=== PATIENT | female | born 1980 | race Caucasian/White ===

== ENCOUNTER 2018-03-12 11:34 | Emergency (ER) | payer MEDICAID ==
[~2018-03-12] VITALS: Ht 157.5 cm; Wt 49.7 kg
[~2018-03-12 11:34] MED LIST: CYCL-394 PO; MARIJUANA; METH500T PO
[2018-03-12 12:23] LABS: BASOPHILS % (AUTO) 0.4 % (0-1); EOSINOPHILS # (AUTO) 0.5 X10'3 (0-0.9); EOSINOPHILS % (AUTO) 4.7 % (0-6); HEMATOCRIT 38.2 % (35.0-45.0); HEMOGLOBIN 12.9 g/dl (12.0-16.0); LYMPHOCYTES # (AUTO) 1.7 X10'3 (1.1-4.8); MEAN CORPUSCULAR HEMOGLOBIN 29.5 PG (27.0-31.0); MEAN CORPUSCULAR HGB CONC 33.8 g/dL (33.0-36.5); MEAN CORPUSCULAR VOLUME 87.2 FL (78-98); MEAN PLATELET VOLUME 7.2 FL (7.4-10.4); MONOCYTES # (AUTO) 0.8 X10'3 (0-0.9); MONOCYTES % (AUTO) 7.2 % (2-12); NEUTROPHILS # (AUTO) 7.6 X10'3 (1.8-7.7); NEUTROPHILS % (AUTO) 71.7 % (42-75); PLATELET COUNT 315 X10'3 (140-440); RED BLOOD COUNT 4.38 X10'6 (4.20-5.60); RED CELL DISTRIBUTION WIDTH 15.5 % (11.5-14.5); WHITE BLOOD COUNT 10.6 X10'3 (4.5-11.0)
[2018-03-12 12:29] LABS: URINE HCG NEGATIVE (NEG)
[2018-03-12 12:33] LABS: CLARITY,URINE CLOUDY (Clear); COLOR,URINE YELLOW (Yellow); GLUCOSE, URINE NEGATIVE (Neg); KETONES,URINE NEGATIVE (Neg); LEUKOCYTE ESTERASE ,URINE NEGATIVE (Neg); NITRITES, URINE NEGATIVE (Neg); OCCULT BLOOD,URINE TRACE-INTACT (Neg); PROTEIN,URINE NEGATIVE (Neg); UA COLLECTION TYPE CLN CATCH MIDSTREAM; UROBILINOGEN,URINE 0.2 E.U/dL (0.2-1.0)
[2018-03-12 12:37] LABS: PROTHROMBIN TIME 10.5 SECONDS (9.0-12.0)
[2018-03-12 12:38] LABS: ALANINE AMINOTRANSFERASE 19 U/L (12-78); ALBUMIN 3.7 G/DL (3.4-5.0); ALKALINE PHOSPHATASE 81 IU/L (46-116); AMYLASE 44 U/L (25-115); ANION GAP 7 (8-16); ASPARTATE AMINO TRANSFERASE 16 U/L (10-37); BILIRUBIN,TOTAL 0.1 MG/DL (0.1-1.0); BLOOD UREA NITROGEN 12 MG/DL (7-18); BUN/CREATININE RATIO 15.2 (6.6-38.0); CHLORIDE 103 MMOL/L (99-107); CREATININE 0.79 MG/DL (0.40-0.90); GLUCOSE 101 MG/DL (70-104); LIPASE 110 U/L (73-393); POTASSIUM 3.8 MMOL/L (3.5-5.1); SODIUM 140 MMOL/L (135-145); TOTAL PROTEIN 7.3 G/DL (6.4-8.2); eGFR 83 ML/MIN
[2018-03-12 12:42] LABS: BACTERIA,URINE 2+ /HPF (Neg); SQUAMOUS EPITHELIAL CELL,UR MANY /LPF (FEW)
[2018-03-12 12:48] LABS: RBC,URINE 0-2 /HPF (0-2); WBC,URINE 0-4 /HPF (0-4)
[2018-03-12] MEDS ORDERED: acetaminophen 325mg tablet PO ONE (13:15)
[2018-03-12] MEDS ORDERED: ONDA4TAB6 PO (15:29)
[2018-03-12 15:44] VITALS: BP 136/79
== END 2018-03-12 15:46 | disposition home or self-care (01) ==
LOC: ER 11:34
DX: R10.31 Right lower quadrant pain (principal); R91.1 Solitary pulmonary nodule; G89.29 Other chronic pain; F17.200 Nicotine dependence, unspecified, uncomplicated; F12.90 Cannabis use, unspecified, uncomplicated; F19.90 Other psychoactive substance use, unspecified, uncomplicated; Z86.69 Personal history of other diseases of the nervous system and sense organs; Z98.890 Other specified postprocedural states; Z88.5 Allergy status to narcotic agent; Z88.8 Allergy status to other drugs, medicaments and biological substances; Z79.899 Other long term (current) drug therapy
CPT/HCPCS: 36415; 74176; 80053; 81001; 81025; 82150; 83690; 85025; 85610; 99284

== ENCOUNTER 2018-10-31 13:12 | Emergency (ER) | payer MEDICAID ==
[~2018-10-31] VITALS: Ht 157.5 cm; Wt 50.0 kg
[~2018-10-31 13:12] MED LIST changes: +ONDA4TAB6 PO
[2018-10-31 15:37] VITALS: BP 91/63
== END 2018-10-31 15:14 | disposition home or self-care (01) ==
LOC: ER 13:13
DX: J02.8 Acute pharyngitis due to other specified organisms (principal); B97.89 Other viral agents as the cause of diseases classified elsewhere; G89.29 Other chronic pain; F32.9 Major depressive disorder, single episode, unspecified; F12.90 Cannabis use, unspecified, uncomplicated; Z87.11 Personal history of peptic ulcer disease; Z98.890 Other specified postprocedural states; Z88.6 Allergy status to analgesic agent; Z88.8 Allergy status to other drugs, medicaments and biological substances; Z79.899 Other long term (current) drug therapy
CPT/HCPCS: 87081; 87880; 99283

== ENCOUNTER 2019-02-21 12:49 | Emergency (ER) | payer MEDICAID ==
[~2019-02-21] VITALS: Ht 177.8 cm; Wt 50.0 kg
[2019-02-21 13:27] LABS: BASOPHILS # (AUTO) 0.1 X10'3 (0-0.2); BASOPHILS % (AUTO) 0.6 % (0-1); EOSINOPHILS # (AUTO) 0.1 X10'3 (0-0.9); EOSINOPHILS % (AUTO) 0.4 % (0-6); HEMATOCRIT 41.9 % (35.0-45.0); HEMOGLOBIN 14.2 g/dl (12.0-16.0); LYMPHOCYTES # (AUTO) 1.4 X10'3 (1.1-4.8); LYMPHOCYTES % (AUTO) 10.5 % (21-51); MEAN CORPUSCULAR HEMOGLOBIN 29.8 PG (27.0-31.0); MEAN CORPUSCULAR HGB CONC 33.9 g/dL (33.0-36.5); MEAN CORPUSCULAR VOLUME 87.9 FL (78-98); MEAN PLATELET VOLUME 7.8 FL (7.4-10.4); MONOCYTES # (AUTO) 0.7 X10'3 (0-0.9); MONOCYTES % (AUTO) 4.8 % (2-12); NEUTROPHILS # (AUTO) 11.5 X10'3 (1.8-7.7); NEUTROPHILS % (AUTO) 83.7 % (42-75); PLATELET COUNT 371 X10'3 (140-440); RED BLOOD COUNT 4.76 X10'6 (4.20-5.60); RED CELL DISTRIBUTION WIDTH 14.9 % (11.5-14.5); WHITE BLOOD COUNT 13.7 X10'3 (4.5-11.0)
[2019-02-21 13:29] LABS: URINE HCG NEGATIVE (NEG)
[2019-02-21 13:32] LABS: CLARITY,URINE SLIGHTLY CLOUDY (Clear); COLOR,URINE YELLOW (Yellow); GLUCOSE, URINE NEGATIVE (Neg); KETONES,URINE >=80 mg/dl (Neg); LEUKOCYTE ESTERASE ,URINE NEGATIVE (Neg); NITRITES, URINE NEGATIVE (Neg); OCCULT BLOOD,URINE MODERATE (Neg); PH,URINE 5.5 (4.8-8.0); PROTEIN,URINE NEGATIVE (Neg); UROBILINOGEN,URINE 0.2 E.U/dL (0.2-1.0)
[2019-02-21 13:40] LABS: UA COLLECTION TYPE CLN CATCH MIDSTREAM
[2019-02-21 13:44] LABS: BACTERIA,URINE 4+ /HPF (Neg); RBC,URINE 0-2 /HPF (0-2); WBC,URINE 0-4 /HPF (0-4)
[2019-02-21 13:45] LABS: MUCUS STRANDS FEW /LPF (Neg); SQUAMOUS EPITHELIAL CELL,UR MANY /LPF (FEW)
[2019-02-21 13:57] LABS: ALANINE AMINOTRANSFERASE 14 U/L (12-78); ALBUMIN 3.8 G/DL (3.4-5.0); ALBUMIN/GLOBULIN RATIO 1.1 (1.1-1.5); ALKALINE PHOSPHATASE 81 IU/L (46-116); ANION GAP 18 (8-16); ASPARTATE AMINO TRANSFERASE 16 U/L (10-37); BILIRUBIN,TOTAL 0.4 MG/DL (0.1-1.0); BLOOD UREA NITROGEN 8 MG/DL (7-18); BUN/CREATININE RATIO 9.2 (6.6-38.0); CALCIUM 8.6 MG/DL (8.5-10.1); CHLORIDE 100 MMOL/L (99-107); CREATININE 0.87 MG/DL (0.40-0.90); GLUCOSE 66 MG/DL (70-104); LIPASE 95 U/L (73-393); POTASSIUM 3.3 MMOL/L (3.5-5.1); SODIUM 137 MMOL/L (135-145); TOTAL CARBON DIOXIDE 19.4 MMOL/L (24-32); TOTAL PROTEIN 7.2 G/DL (6.4-8.2); eGFR 74 ML/MIN
[2019-02-21] MEDS ORDERED: normal saline 1000ML IV soln IVB ONE ×2 (14:25→15:10)
[2019-02-21] MEDS ORDERED: ondansetron/PF 4mg/2ml inj IV ONE (14:25)
[2019-02-21] MEDS ORDERED: ketorolac tromethamine 15mg/ml inj. IV ONE (14:25)
[2019-02-21] MEDS ORDERED: ONDA4TAB6 PO (15:58)
[2019-02-21 16:08] VITALS: BP 86/63
== END 2019-02-21 16:07 | disposition home or self-care (01) ==
LOC: ER 12:49
DX: R10.32 Left lower quadrant pain (principal); G89.29 Other chronic pain; F12.90 Cannabis use, unspecified, uncomplicated; Z98.890 Other specified postprocedural states; Z87.11 Personal history of peptic ulcer disease; Z88.8 Allergy status to other drugs, medicaments and biological substances; Z88.6 Allergy status to analgesic agent
CPT/HCPCS: 36415; 74176; 80053; 81001; 81025; 83690; 85025; 96374; 96375; 99284; J1885; J2405; J7030; 96361

== ENCOUNTER 2020-03-19 18:06 | Emergency (ER) | payer MEDICAID ==
[~2020-03-19] VITALS: Ht 157.5 cm; Wt 54.8 kg
[2020-03-19] MEDS ORDERED: ondansetron/PF 4mg/2ml inj IV ONE (19:25)
[2020-03-19] MEDS ORDERED: normal saline 1000ml 1,000 ML IV ONE (19:25)
[2020-03-19 20:12] LABS: BASOPHILS # (AUTO) 0.1 X10'3 (0-0.2); EOSINOPHILS % (AUTO) 0.2 % (0-6); HEMATOCRIT 42.7 % (35.0-45.0); HEMOGLOBIN 14.8 g/dl (12.0-16.0); LYMPHOCYTES # (AUTO) 3.6 X10'3 (1.1-4.8); LYMPHOCYTES % (AUTO) 38.1 % (21-51); MEAN CORPUSCULAR HEMOGLOBIN 30.1 PG (27.0-31.0); MEAN CORPUSCULAR HGB CONC 34.6 g/dL (33.0-36.5); MEAN CORPUSCULAR VOLUME 86.9 FL (78-98); MEAN PLATELET VOLUME 7.6 FL (7.4-10.4); MONOCYTES # (AUTO) 0.8 X10'3 (0-0.9); NEUTROPHILS % (AUTO) 52.7 % (42-75); PLATELET COUNT 395 X10'3 (140-440); RED BLOOD COUNT 4.91 X10'6 (4.20-5.60); RED CELL DISTRIBUTION WIDTH 15.9 % (11.5-14.5); WHITE BLOOD COUNT 9.5 X10'3 (4.5-11.0)
[2020-03-19 20:23] LABS: URINE HCG NEGATIVE (NEG)
[2020-03-19 20:30] LABS: ALANINE AMINOTRANSFERASE 13 U/L (12-78); ALBUMIN 3.7 G/DL (3.4-5.0); ALKALINE PHOSPHATASE 80 IU/L (46-116); ANION GAP 14 (8-16); ASPARTATE AMINO TRANSFERASE 16 U/L (10-37); BILIRUBIN,TOTAL 0.3 MG/DL (0.1-1.0); BLOOD UREA NITROGEN 8 MG/DL (7-18); BUN/CREATININE RATIO 10.1 (6.6-38.0); CALCIUM 8.9 MG/DL (8.5-10.1); CHLORIDE 96 MMOL/L (99-107); CREATININE 0.79 MG/DL (0.40-0.90); GLUCOSE 74 MG/DL (70-104); LIPASE < 50 U/L (73-393); SODIUM 140 MMOL/L (135-145); TOTAL CARBON DIOXIDE 29.8 MMOL/L (24-32); TOTAL PROTEIN 7.5 G/DL (6.4-8.2); eGFR 82 ML/MIN
[2020-03-19 20:44] LABS: POTASSIUM 2.3 MMOL/L (3.5-5.1)
[2020-03-19] MEDS ORDERED: potassium Cl 20 mEq SR tablet PO STA (20:53)
[2020-03-19] MEDS ORDERED: magnesium 2GM in 50ml NS 50 ML IV ONE (20:55)
[2020-03-19] MEDS ORDERED: ONDA4TAB12 PO (21:06)
[2020-03-19] MEDS: potassium Cl 10 mEq/100mL bag IV SCH ×3 (21:55→23:59)
[2020-03-19 22:31] VITALS: BP 106/72
[2020-03-19 23:56] LABS: ALBUMIN 2.7 G/DL (3.4-5.0); ANION GAP 9 (8-16); BLOOD UREA NITROGEN 5 MG/DL (7-18); BUN/CREATININE RATIO 8.5 (6.6-38.0); CALCIUM 7.5 MG/DL (8.5-10.1); CHLORIDE 107 MMOL/L (99-107); CREATININE 0.59 MG/DL (0.40-0.90); GLUCOSE 72 MG/DL (70-104); SODIUM 144 MMOL/L (135-145); TOTAL CARBON DIOXIDE 28.5 MMOL/L (24-32); eGFR > 90 ML/MIN
[2020-03-19 23:58] LABS: POTASSIUM 2.8 MMOL/L (3.5-5.1)
[2020-03-20] MEDS ORDERED: POTASSIUM BICARB 20meq eff tab 20 MEQ TABLET.EFF PO SCH (00:05)
[2020-03-20] MEDS ORDERED: ondansetron/PF 4mg/2ml inj IV ONE (00:10)
== END 2020-03-20 00:41 | disposition home or self-care (01) ==
LOC: ER 18:07
DX: E87.6 Hypokalemia (principal); R11.2 Nausea with vomiting, unspecified; E78.00 Pure hypercholesterolemia, unspecified; G89.29 Other chronic pain; F32.9 Major depressive disorder, single episode, unspecified; F17.200 Nicotine dependence, unspecified, uncomplicated; F12.90 Cannabis use, unspecified, uncomplicated; Z86.69 Personal history of other diseases of the nervous system and sense organs; Z72.89 Other problems related to lifestyle; Z98.890 Other specified postprocedural states; Z88.8 Allergy status to other drugs, medicaments and biological substances; Z79.899 Other long term (current) drug therapy
CPT/HCPCS: 36415; 80048; 80053; 81025; 83690; 85025; 93005; 96365; 96367; 96375; 96376; 99285; J2405; J3475; J3480; J7030

== ENCOUNTER → 2020-07-13 | Day surgery (SDC) | payer MEDICAID ==
[~2020-07-13] MED LIST changes: +ONDA4TAB12 PO
== END | disposition home or self-care (01) ==
LOC: RAD 09:25
PROVIDERS: ATTEND Physician Assistant
DX: R11.2 Nausea with vomiting, unspecified (principal); K30 Functional dyspepsia
CPT/HCPCS: 78264; A9541

== ENCOUNTER 2022-01-11 07:02 | Emergency (ER) | payer MEDICAID ==
[~2022-01-11] VITALS: Ht 157.5 cm; Wt 63.6 kg
[2022-01-11 07:39] LABS: BASOPHILS % (AUTO) 0.4 % (0-1); EOSINOPHILS # (AUTO) 0.3 X10'3 (0-0.9); EOSINOPHILS % (AUTO) 3.1 % (0-6); HEMATOCRIT 35.8 % (35.0-45.0); LYMPHOCYTES # (AUTO) 2.2 X10'3 (1.1-4.8); LYMPHOCYTES % (AUTO) 19.8 % (21-51); MEAN CORPUSCULAR HEMOGLOBIN 29.4 PG (27.0-31.0); MEAN CORPUSCULAR HGB CONC 33.5 g/dL (33.0-36.5); MEAN CORPUSCULAR VOLUME 87.6 FL (78-98); MEAN PLATELET VOLUME 7.3 FL (7.4-10.4); MONOCYTES # (AUTO) 0.9 X10'3 (0-0.9); MONOCYTES % (AUTO) 8.3 % (2-12); NEUTROPHILS # (AUTO) 7.4 X10'3 (1.8-7.7); NEUTROPHILS % (AUTO) 68.4 % (42-75); PLATELET COUNT 349 X10'3 (140-440); RED BLOOD COUNT 4.09 X10'6 (4.20-5.60); RED CELL DISTRIBUTION WIDTH 16.8 % (11.5-14.5); WHITE BLOOD COUNT 10.9 X10'3 (4.5-11.0)
[2022-01-11] MEDS ORDERED: ondansetron 4mg rapidly disintigrating tab PO ONE (07:40)
[2022-01-11] MEDS ORDERED: mag hydrox/Alum hydrox/simeth 30ml oral suspension PO ONE (07:40)
[2022-01-11] MEDS ORDERED: HYDROcodone/acetaminophen 5mg/325mg tablet PO ONE (07:40)
[2022-01-11] MEDS ORDERED: LIDOcaine Viscous 15ml cup MM ONE (07:40)
[2022-01-11] MEDS ORDERED: famotidine 20mg tablet PO ONE (07:40)
[2022-01-11 08:07] LABS: ALANINE AMINOTRANSFERASE 38 U/L (12-78); ALBUMIN 3.4 G/DL (3.4-5.0); ALBUMIN/GLOBULIN RATIO 0.9 (1.1-1.5); ALKALINE PHOSPHATASE 92 IU/L (46-116); ANION GAP 11 (8-16); ASPARTATE AMINO TRANSFERASE 35 U/L (10-37); BILIRUBIN,TOTAL 0.3 MG/DL (0.1-1.0); BLOOD UREA NITROGEN 16 MG/DL (7-18); BUN/CREATININE RATIO 21.3 (6.6-38.0); CALCIUM 8.8 MG/DL (8.5-10.1); CHLORIDE 102 MMOL/L (99-107); CREATININE 0.75 MG/DL (0.40-0.90); GLUCOSE 110 MG/DL (70-104); LIPASE 119 U/L (73-393); POTASSIUM 3.9 MMOL/L (3.5-5.1); SODIUM 141 MMOL/L (135-145); TOTAL CARBON DIOXIDE 27.9 MMOL/L (24-32); eGFR 86 ML/MIN
[2022-01-11 09:10] LABS: CLARITY,URINE SLIGHTLY CLOUDY (Clear); COLOR,URINE YELLOW (Yellow); GLUCOSE, URINE NEGATIVE (Neg); KETONES,URINE NEGATIVE (Neg); LEUKOCYTE ESTERASE ,URINE NEGATIVE (Neg); NITRITES, URINE NEGATIVE (Neg); OCCULT BLOOD,URINE TRACE-INTACT (Neg); PH,URINE 8.5 (4.8-8.0); PROTEIN,URINE TRACE mg/dl (Neg); UROBILINOGEN,URINE 0.2 E.U/dL (0.2-1.0)
[2022-01-11 09:11] LABS: URINE HCG NEGATIVE (NEG)
[2022-01-11 09:19] LABS: UA COLLECTION TYPE CLN CATCH MIDSTREAM
[2022-01-11 09:20] LABS: WBC,URINE 0-4 /HPF (0-4)
[2022-01-11 09:21] LABS: BACTERIA,URINE 2+ /HPF (Neg); RBC,URINE 0-2 /HPF (0-2); SQUAMOUS EPITHELIAL CELL,UR MANY /LPF (FEW)
[2022-01-11] MEDS ORDERED: FAMO-128 PO (10:30)
[2022-01-11 10:47] VITALS: BP 92/65
== END 2022-01-11 10:50 | disposition home or self-care (01) ==
LOC: ER 07:03
DX: K29.00 Acute gastritis without bleeding (principal); K59.00 Constipation, unspecified; K21.9 Gastro-esophageal reflux disease without esophagitis; E78.00 Pure hypercholesterolemia, unspecified; G89.29 Other chronic pain; F31.9 Bipolar disorder, unspecified; F12.10 Cannabis abuse, uncomplicated; Z88.8 Allergy status to other drugs, medicaments and biological substances; Z79.899 Other long term (current) drug therapy
CPT/HCPCS: 36415; 74176; 76700; 80053; 81001; 81025; 83690; 85025; 99285

== ENCOUNTER 2022-06-21 19:52 | Inpatient (IN) | payer MEDICAID ==
[~2022-06-21] VITALS: Ht 157.5 cm; Wt 68.2 kg
[~2022-06-21 19:52] MED LIST changes: +FAMO-128 PO
[2022-06-21] MEDS ORDERED: temazepam 15mg capsule PO PRN (21:00)
[2022-06-21] MEDS ORDERED: morphine 4 MG/ML inj SYRINge IM ONE (21:20)
[2022-06-21] MEDS ORDERED: ondansetron 4mg rapidly disintigrating tab PO ONE (21:20)
[2022-06-21 22:07] LABS: URINE HCG NEGATIVE (NEG)
[2022-06-21] MEDS ORDERED: morphine 2 MG/ML inj. syringe IV PRN (23:05)
[2022-06-21] MEDS ORDERED: bisacodyl 10mg suppository rectal RC PRN (23:05)
[2022-06-21] MEDS ORDERED: diphenhydrAMINE 50 mg/ml inj IV PRN (23:05)
[2022-06-21] MEDS ORDERED: ondansetron/PF 4mg/2ml inj IV PRN (23:05)
[2022-06-21] MEDS ORDERED: mag hydrox/Alum hydrox/simeth 30ml oral suspension PO PRN (23:05)
[2022-06-21] MEDS ORDERED: acetaminophen 325mg tablet PO PRN ×2 (23:05)
[2022-06-21] MEDS ORDERED: acetaminophen 650mg rectal suppository RC PRN (23:05)
[2022-06-21] MEDS ORDERED: metoclopramide 5 mg/ml inj IV PRN (23:05)
[2022-06-21] MEDS ORDERED: magnesium hydroxide 30ml (MOM) UD suspension PO PRN (23:05)
[2022-06-21] MEDS: normal saline 1000ml 1,000 ML IV SCH (23:05)
[2022-06-21] MEDS ORDERED: HYDROmorphone inj. 0.5 MG/0.5 ML DISP.SYRIN IV PRN (23:05)
[2022-06-21] MEDS ORDERED: diphenhydrAMINE 25mg capsule PO PRN (23:05)
[2022-06-21] MEDS ORDERED: HYDROcodone/acetaminophen 5mg/325mg tablet PO PRN (23:05)
[2022-06-21] MEDS ORDERED: ondansetron 4mg rapidly disintigrating tab PO PRN (23:05)
[2022-06-21 23:14] LABS: BASOPHILS # (AUTO) 0.2 X10'3 (0-0.2); BASOPHILS % (AUTO) 1.6 % (0-1); EOSINOPHILS # (AUTO) 0.2 X10'3 (0-0.9); EOSINOPHILS % (AUTO) 2.1 % (0-6); HEMOGLOBIN 12.8 g/dl (12.0-16.0); LYMPHOCYTES # (AUTO) 3.3 X10'3 (1.1-4.8); LYMPHOCYTES % (AUTO) 31.3 % (21-51); MEAN CORPUSCULAR HEMOGLOBIN 29.5 PG (27.0-31.0); MEAN CORPUSCULAR HGB CONC 33.7 g/dL (33.0-36.5); MEAN CORPUSCULAR VOLUME 87.6 FL (78-98); MEAN PLATELET VOLUME 7.3 FL (7.4-10.4); MONOCYTES # (AUTO) 0.7 X10'3 (0-0.9); MONOCYTES % (AUTO) 6.2 % (2-12); NEUTROPHILS # (AUTO) 6.3 X10'3 (1.8-7.7); NEUTROPHILS % (AUTO) 58.8 % (42-75); PLATELET COUNT 411 X10'3 (140-440); RED BLOOD COUNT 4.34 X10'6 (4.20-5.60); RED CELL DISTRIBUTION WIDTH 15.8 % (11.5-14.5); WHITE BLOOD COUNT 10.7 X10'3 (4.5-11.0)
[2022-06-21 23:40] LABS: APTT 30 SECONDS (22-32)
[2022-06-21 23:42] LABS: ALANINE AMINOTRANSFERASE 33 U/L (12-78); ALBUMIN 3.7 G/DL (3.4-5.0); ALBUMIN/GLOBULIN RATIO 1.1 (1.1-1.5); ALKALINE PHOSPHATASE 101 IU/L (46-116); ANION GAP 8 (8-16); ASPARTATE AMINO TRANSFERASE 43 U/L (10-37); BILIRUBIN,TOTAL 0.3 MG/DL (0.1-1.0); BLOOD UREA NITROGEN 11 MG/DL (7-18); BUN/CREATININE RATIO 16.4 (10.0-20.0); CALCIUM 8.7 MG/DL (8.5-10.1); CHLORIDE 103 MMOL/L (99-107); CREATININE 0.67 MG/DL (0.40-0.90); GLUCOSE 89 MG/DL (70-104); POTASSIUM 3.1 MMOL/L (3.5-5.1); SODIUM 139 MMOL/L (135-145); TOTAL CARBON DIOXIDE 28.2 MMOL/L (24-32); TOTAL PROTEIN 7.2 G/DL (6.4-8.2); eGFR > 90 ML/MIN
[2022-06-21 23:48] LABS: PHOSPHORUS 3.6 MG/DL (2.3-4.5)
[2022-06-22] VITALS (20 sets, daily range): BP systolic 96–134; BP diastolic 60–90
[2022-06-22] MEDS: morphine 2 MG/ML inj. syringe IV PRN ×5 (00:21→19:17)
[2022-06-22 00:46] LABS: CLARITY,URINE SLIGHTLY CLOUDY (Clear); COLOR,URINE YELLOW (Yellow); GLUCOSE, URINE NEGATIVE (Neg); KETONES,URINE NEGATIVE (Neg); LEUKOCYTE ESTERASE ,URINE NEGATIVE (Neg); NITRITES, URINE NEGATIVE (Neg); OCCULT BLOOD,URINE MODERATE (Neg); PH,URINE 5.5 (4.8-8.0); PROTEIN,URINE NEGATIVE (Neg); UROBILINOGEN,URINE 0.2 E.U/dL (0.2-1.0)
[2022-06-22 01:07] LABS: UA COLLECTION TYPE CLN CATCH MIDSTREAM
[2022-06-22 01:08] LABS: BACTERIA,URINE FEW /HPF (Neg); MUCUS STRANDS FEW /LPF (Neg); SQUAMOUS EPITHELIAL CELL,UR MANY /LPF (FEW); URINE AMPHETAMINE SCREEN NEGATIVE (Neg); URINE BARBITUATE SCREEN NEGATIVE (Neg); URINE BENZODIAZEPINES SCREEN NEGATIVE (Neg); URINE CANNABINOID SCREEN POSITIVE (Neg); URINE COCAINE SCREEN NEGATIVE (Neg); URINE METHADONE SCREEN NEGATIVE (Neg); URINE OPIATE SCREEN POSITIVE (Neg); URINE PHENCYCLIDINE SCREEN NEGATIVE (Neg); WBC,URINE 0-4 /HPF (0-4)
[2022-06-22] MEDS ORDERED: BUPR1FIL3 PO (02:14)
[2022-06-22] MEDS ORDERED: METO5TAB98 PO (02:14)
[2022-06-22] MEDS ORDERED: PANT40TA54 PO (02:14)
[2022-06-22] MEDS ORDERED: magnesium Cl slow-release 64mg tablet PO PRN (03:05)
[2022-06-22] MEDS ORDERED: potassium Cl 20 mEq SR tablet PO PRN ×2 (03:05)
[2022-06-22] MEDS ORDERED: magnesium 4gm in 100ml NS 100 ML IV PRN (03:05)
[2022-06-22] MEDS ORDERED: magnesium 2GM in 50ml NS 50 ML IV PRN (03:05)
[2022-06-22] MEDS ORDERED: potassium Cl 40MEQ/1/2NS 520ml 520 ML IV PRN (03:05)
[2022-06-22] MEDS ORDERED: potassium Cl 40MEQ/1/2NS 520ml 520 ML IV SCH (04:00)
--- NOTE | 2022-06-22 06:08 | NUR ---
Problems reprioritized. Patient report given, questions answered & plan of care reviewed with FELICIA Barrera.
[2022-06-22] MEDS: HYDROcodone/acetaminophen 10/325mg tab PO PRN ×4 (06:31→20:57)
[2022-06-22 07:24] LABS: BASOPHILS # (AUTO) 0.1 X10'3 (0-0.2); EOSINOPHILS # (AUTO) 0.3 X10'3 (0-0.9); EOSINOPHILS % (AUTO) 3.8 % (0-6); HEMOGLOBIN 12.4 g/dl (12.0-16.0); LYMPHOCYTES # (AUTO) 2.6 X10'3 (1.1-4.8); LYMPHOCYTES % (AUTO) 36.7 % (21-51); MEAN CORPUSCULAR HEMOGLOBIN 29.8 PG (27.0-31.0); MEAN CORPUSCULAR HGB CONC 34.4 g/dL (33.0-36.5); MEAN CORPUSCULAR VOLUME 86.9 FL (78-98); MEAN PLATELET VOLUME 7.5 FL (7.4-10.4); MONOCYTES # (AUTO) 0.6 X10'3 (0-0.9); MONOCYTES % (AUTO) 8.4 % (2-12); NEUTROPHILS # (AUTO) 3.5 X10'3 (1.8-7.7); NEUTROPHILS % (AUTO) 50.1 % (42-75); PLATELET COUNT 400 X10'3 (140-440); RED BLOOD COUNT 4.14 X10'6 (4.20-5.60); RED CELL DISTRIBUTION WIDTH 15.8 % (11.5-14.5)
[2022-06-22 07:33] LABS: ALANINE AMINOTRANSFERASE 25 U/L (12-78); ALBUMIN 3.1 G/DL (3.4-5.0); ALKALINE PHOSPHATASE 88 IU/L (46-116); ANION GAP 6 (8-16); ASPARTATE AMINO TRANSFERASE 34 U/L (10-37); BILIRUBIN,TOTAL 0.3 MG/DL (0.1-1.0); BLOOD UREA NITROGEN 8 MG/DL (7-18); BUN/CREATININE RATIO 12.9 (10.0-20.0); CALCIUM 8.3 MG/DL (8.5-10.1); CHLORIDE 106 MMOL/L (99-107); CHOL/HDL RATIO 3.6 (0.00-4.99); CHOLESTEROL 153 MG/DL (0-200); CREATININE 0.62 MG/DL (0.40-0.90); GLUCOSE 84 MG/DL (70-104); HDL CHOLESTEROL 43 MG/DL (35-60); LDL CHOLESTEROL 65 MG/DL (50-100); POTASSIUM 3.6 MMOL/L (3.5-5.1); SODIUM 140 MMOL/L (135-145); TOTAL CARBON DIOXIDE 27.8 MMOL/L (24-32); TOTAL PROTEIN 6.3 G/DL (6.4-8.2); TRIGLYCERIDES 126 MG/DL (20-135); eGFR > 90 ML/MIN
[2022-06-22] MEDS: K and/or MAG REPLACEMENT MC SCH ×2 (08:00→19:18)
[2022-06-22] MEDS ORDERED: pantoprazole 40MG/NS 100ML BAG 100 ML IV SCH (08:00)
[2022-06-22] MEDS: docusate sod 100mg capsule PO SCH ×2 (08:00→20:57)
[2022-06-22] MEDS: normal saline 1000ml 1,000 ML IV SCH ×3 (08:19→23:35)
[2022-06-22] MEDS ORDERED: BUPIVAcaine/PF 2.5 mg/ml (0.25%) 30ml vial ONE (10:58)
[2022-06-22] MEDS ORDERED: morphine 4 MG/ML inj SYRINge IV PRN (11:55)
[2022-06-22] MEDS ORDERED: ondansetron/PF 4mg/2ml inj IV PRN (11:55)
[2022-06-22] MEDS ORDERED: hydrALAZINE 20mg/ml inj. IV PRN (11:55)
[2022-06-22] MEDS ORDERED: ringers solution, lacted 1,000 ML IV SCH (11:55)
[2022-06-22] MEDS ORDERED: labetalol 20mg/4ml (5mg/ml) syringe IV PRN (11:55)
[2022-06-22] MEDS ORDERED: acetaminophen 1,000mg/100ml IV 100 ML IV PRN (11:55)
[2022-06-22] MEDS ORDERED: morphine 2 MG/ML inj. syringe IV PRN (11:55)
[2022-06-22] MEDS ORDERED: meperidine/PF 25mg/ml syringe IV PRN (11:55)
[2022-06-22] MEDS ORDERED: HYDROmorphone/PF 0.2 MG/ML SYRINGE IV PRN ×2 (11:55)
[2022-06-22] MEDS ORDERED: sevoflurane 250ml liquid IH ONE (11:56)
[2022-06-22] MEDS ORDERED: fentaNYL/PF 50MCG/1 ML 2ML syringe ONE (12:04)
[2022-06-22] MEDS ORDERED: midazolam 1 mg/ML 2ml injection ONE (12:05)
[2022-06-22] MEDS ORDERED: propofol inj 20 ML IV ONE (12:22)
[2022-06-22] MEDS ORDERED: ceFAZolin 1000mg inj ONE ×2 (12:22)
[2022-06-22] MEDS ORDERED: LIDOcaine 2% (20mg/ml) 5ml vial ONE (12:22)
[2022-06-22] MEDS ORDERED: ondansetron/PF 4mg/2ml inj ONE (12:27)
[2022-06-22] MEDS ORDERED: dexamethasone sod phosphate 4mg/ml inj. ONE (12:27)
--- NOTE | 2022-06-22 13:02 | NUR ---
Received from OR via BED IN STABLE CONDITION , accompanied by Anesthesiologist and CASINO GAMING WORKER report given by CASINO GAMING WORKER AND Anesthesiolgist. Addendum: 06/22/22 at 1339 by Dai Casillas RN Amended: Links added.
--- NOTE | 2022-06-22 14:22 | NUR ---
PATIENT DISCHARGED FROM PACU IN STABLE CONDITION AFTER REPORT GIVEN TO RN TAKING OVER PATIENTS CARE. PATIENT TRANSFERRED TO ROOM [facility] VIA BED WITH RN X2. Addendum: 06/22/22 at 1455 by Dai Casillas RN Amended: Links added.
[2022-06-22] MEDS ORDERED: ARIP15TA19 PO (17:19)
[2022-06-22] MEDS ORDERED: QUET300T20 PO (17:19)
[2022-06-22] MEDS ORDERED: TRAZ-256 PO (17:19)
--- NOTE | 2022-06-22 18:30 | NUR ---
Patient in room ORTHO 4011. I have received report from FELICIA Barrera and had the opportunity to ask questions and assume patient care.
[2022-06-22] MEDS: buprenorphine/naloxone 8MG-2MG SUBlingual film SL SCH ×2 (20:58→20:59)
[2022-06-22] MEDS ORDERED: quetiapine fumarate ER 300mg tablet PO SCH (21:00)
[2022-06-22] MEDS ORDERED: traZODone 50mg tablet PO SCH (21:00)
[2022-06-23] MEDS: morphine 2 MG/ML inj. syringe IV PRN ×2 (00:50→05:57)
[2022-06-23 02:00] VITALS: BP 112/73
[2022-06-23 02:15] VITALS: BP 112/73
[2022-06-23] MEDS: HYDROcodone/acetaminophen 10/325mg tab PO PRN ×3 (04:12→12:30)
[2022-06-23 06:00] VITALS: BP 99/69
--- NOTE | 2022-06-23 06:35 | NUR ---
Problems reprioritized. Patient report given, questions answered & plan of care reviewed with FELICIA AMIN.
--- NOTE | 2022-06-23 06:38 | NUR ---
Patient in room ORTHO 4011. I have received report from FELICIA Muñoz and had the opportunity to ask questions and assume patient care.
[2022-06-23] MEDS: K and/or MAG REPLACEMENT MC SCH (08:00)
[2022-06-23] MEDS: buprenorphine/naloxone 8MG-2MG SUBlingual film SL SCH ×2 (08:00→13:00)
[2022-06-23] MEDS ORDERED: ARIPIPRAZOLE 15 MG TABLET PO SCH (08:00)
[2022-06-23] MEDS ORDERED: pantoprazole 40mg Tablet.DR PO SCH (08:00)
[2022-06-23] MEDS: docusate sod 100mg capsule PO SCH (08:19)
[2022-06-23 09:27] LABS: BASOPHILS # (AUTO) 0.1 X10'3 (0-0.2); BASOPHILS % (AUTO) 0.7 % (0-1); EOSINOPHILS % (AUTO) 0.2 % (0-6); HEMOGLOBIN 11.6 g/dl (12.0-16.0); LYMPHOCYTES # (AUTO) 1.9 X10'3 (1.1-4.8); LYMPHOCYTES % (AUTO) 14.6 % (21-51); MEAN CORPUSCULAR HEMOGLOBIN 29.1 PG (27.0-31.0); MEAN CORPUSCULAR HGB CONC 33.2 g/dL (33.0-36.5); MEAN CORPUSCULAR VOLUME 87.6 FL (78-98); MEAN PLATELET VOLUME 7.5 FL (7.4-10.4); MONOCYTES % (AUTO) 8.2 % (2-12); NEUTROPHILS # (AUTO) 9.7 X10'3 (1.8-7.7); NEUTROPHILS % (AUTO) 76.3 % (42-75); PLATELET COUNT 387 X10'3 (140-440); RED BLOOD COUNT 3.99 X10'6 (4.20-5.60); RED CELL DISTRIBUTION WIDTH 15.4 % (11.5-14.5); WHITE BLOOD COUNT 12.7 X10'3 (4.5-11.0)
[2022-06-23 09:35] LABS: ALANINE AMINOTRANSFERASE 24 U/L (12-78); ALBUMIN 3.3 G/DL (3.4-5.0); ALKALINE PHOSPHATASE 94 IU/L (46-116); ANION GAP 10 (8-16); ASPARTATE AMINO TRANSFERASE 18 U/L (10-37); BILIRUBIN,TOTAL 0.2 MG/DL (0.1-1.0); BLOOD UREA NITROGEN 8 MG/DL (7-18); BUN/CREATININE RATIO 9.9 (10.0-20.0); CALCIUM 8.4 MG/DL (8.5-10.1); CHLORIDE 107 MMOL/L (99-107); CREATININE 0.81 MG/DL (0.40-0.90); GLUCOSE 115 MG/DL (70-104); POTASSIUM 3.1 MMOL/L (3.5-5.1); SODIUM 141 MMOL/L (135-145); TOTAL CARBON DIOXIDE 23.9 MMOL/L (24-32); TOTAL PROTEIN 6.5 G/DL (6.4-8.2); eGFR 79 ML/MIN
[2022-06-23 10:00] VITALS: BP 91/60
[2022-06-23] MEDS ORDERED: potassium Cl 20 mEq SR tablet PO STA (12:20)
[2022-06-23] MEDS ORDERED: HYDR-3972 PO ×2 (12:58)
--- NOTE | 2022-06-23 13:31 | NUR ---
Patient's downs cath was removed at 0830. The patient urinated a large amount of urine and does not show signs of retention.
--- NOTE | 2022-06-23 13:49 | NUR ---
PAGER ID: [phone] MESSAGE: [phone] RE: [facility] Aren[facility] room 4011A - her pharmacy is closed on weekends. Is it too late to send the meds to [facility] on [address]?
[2022-06-23] MEDS ORDERED: HYDR-3973 PO (13:52)
--- NOTE | 2022-06-23 15:20 | NUR ---
Patient was discharged at 1505 with instructions verbalizing understanding of instructions in wheelchair accompanied by nursing staff and family going home via private vehicle. All lines and tubes including PIV with cannula intact have been removed. Education has been provided and all questions have been answered. Patient will call her PCP and Dr. Lemus's office for follow up appointments. Patient is stable and appropriate for discharge.
== END 2022-06-23 15:05 | disposition home health service (06) | DRG 308 ==
LOC: ER 19:53 → ED HOLD 23:10 → ORTHO 4S 06-22 02:45
PROVIDERS: ADMIT Family Medicine; ATTEND Family Medicine
PROC: 0QH734Z Insertion of Internal Fixation Device into Left Upper Femur, Percutaneous Approach (ICD-10-PCS; principal; 2022-06-22 11:56)
DX: S72.002A Fracture of unspecified part of neck of left femur, initial encounter for closed fracture (principal); E78.00 Pure hypercholesterolemia, unspecified; E87.6 Hypokalemia; F12.10 Cannabis abuse, uncomplicated; W18.39XA Other fall on same level, initial encounter; F31.9 Bipolar disorder, unspecified; G40.909 Epilepsy, unspecified, not intractable, without status epilepticus; R26.2 Difficulty in walking, not elsewhere classified; G89.4 Chronic pain syndrome; K21.9 Gastro-esophageal reflux disease without esophagitis; Z87.11 Personal history of peptic ulcer disease; Z88.8 Allergy status to other drugs, medicaments and biological substances; Z98.891 History of uterine scar from previous surgery; Y93.89 Activity, other specified; Y92.098 Other place in other non-institutional residence as the place of occurrence of the external cause; Y99.8 Other external cause status; Z79.899 Other long term (current) drug therapy; Z71.51 Drug abuse counseling and surveillance of drug abuser; Z71.6 Tobacco abuse counseling
CPT/HCPCS: 36415; 71045; 72192; 73502; 76000; 80053; 80061; 80305; 81001; 81025; 82948; 83036; 83735; 83880; 84100; 85025; 85610; 85730; 86885; 86900; 86901; 87081; 93005; 97116; 97161; 97530; 99285; C9113; G0378; J0690; J1100; J1170; J2175; J2250; J2270; J2405; J2704; J3010; J3490; J7030; J8597

== ENCOUNTER 2022-07-21 10:52 | Emergency (ER) | payer MEDICAID ==
[~2022-07-21] VITALS: Ht 157.5 cm; Wt 82.0 kg
[2022-07-21 10:52] VITALS: BP 113/77
[~2022-07-21 10:52] MED LIST changes: +ARIP15TA19 PO; +BUPR1FIL3 PO; -CYCL-394 PO; -FAMO-128 PO; +HYDR-3973 PO; -METH500T PO; +METO5TAB98 PO; -ONDA4TAB12 PO; -ONDA4TAB6 PO; +PANT40TA54 PO; +QUET300T20 PO; +TRAZ-256 PO
[2022-07-21] MEDS ORDERED: FURO-150 PO (11:20)
[2022-07-21] MEDS ORDERED: HYDR-3972 PO (11:20)
[2022-07-21] MEDS ORDERED: AMOX-580 PO (11:20)
[2022-07-21] MEDS ORDERED: POTA-205 PO (11:20)
== END 2022-07-21 11:51 | disposition home or self-care (01) ==
LOC: ER 10:52
DX: K04.7 Periapical abscess without sinus (principal); I87.2 Venous insufficiency (chronic) (peripheral); E78.00 Pure hypercholesterolemia, unspecified; K21.9 Gastro-esophageal reflux disease without esophagitis; G89.29 Other chronic pain; F32.9 Major depressive disorder, single episode, unspecified; F12.90 Cannabis use, unspecified, uncomplicated; Z98.890 Other specified postprocedural states; Z72.89 Other problems related to lifestyle; Z88.8 Allergy status to other drugs, medicaments and biological substances; Z79.899 Other long term (current) drug therapy
CPT/HCPCS: 99283

== ENCOUNTER 2022-08-06 10:13 | Emergency (ER) | payer MEDICAID ==
[~2022-08-06] VITALS: Ht 157.5 cm; Wt 75.0 kg
[~2022-08-06 10:13] MED LIST changes: +AMOX-580 PO; +FURO-150 PO; -HYDR-3973 PO; +POTA-205 PO
[2022-08-06 10:24] VITALS: BP 107/75
[2022-08-06] MEDS ORDERED: acetaminophen 325mg tablet PO ONE (10:35)
== END 2022-08-06 12:20 | disposition home or self-care (01) ==
LOC: ER 10:13
DX: M25.562 Pain in left knee (principal); E78.00 Pure hypercholesterolemia, unspecified; K21.9 Gastro-esophageal reflux disease without esophagitis; F32.A Depression, unspecified; F12.10 Cannabis abuse, uncomplicated; Z88.8 Allergy status to other drugs, medicaments and biological substances; Z79.899 Other long term (current) drug therapy
CPT/HCPCS: 73564; 99283; A6449

== ENCOUNTER 2022-08-16 10:39 | Emergency (ER) | payer MEDICAID ==
[~2022-08-16] VITALS: Ht 157.5 cm; Wt 68.2 kg
[2022-08-16 10:46] VITALS: BP 103/75
[2022-08-16] MEDS ORDERED: HYDR-3973 PO (14:29)
[2022-08-16] MEDS ORDERED: DICL100G30 TOP (14:29)
== END 2022-08-16 14:36 | disposition home or self-care (01) ==
LOC: ER 10:40
DX: M25.562 Pain in left knee (principal); E78.00 Pure hypercholesterolemia, unspecified; K21.9 Gastro-esophageal reflux disease without esophagitis; F12.90 Cannabis use, unspecified, uncomplicated; Z88.8 Allergy status to other drugs, medicaments and biological substances; Z98.890 Other specified postprocedural states
CPT/HCPCS: 99283

== ENCOUNTER 2023-01-12 13:43 | Emergency (ER) | payer MEDICAID ==
[~2023-01-12] VITALS: Ht 157.5 cm; Wt 70.7 kg
[~2023-01-12 13:43] MED LIST changes: -AMOX-580 PO; +DICL100G59 TOP
[2023-01-12 16:27] VITALS: BP 110/67; PULSE 89; RESP 17; TEMP 97.9; O2SAT 98
== END 2023-01-12 16:28 | disposition home or self-care (01) ==
LOC: ER 13:43
DX: S93.691A Other sprain of right foot, initial encounter (principal); E78.00 Pure hypercholesterolemia, unspecified; K21.9 Gastro-esophageal reflux disease without esophagitis; F32.A Depression, unspecified; F12.90 Cannabis use, unspecified, uncomplicated; Z98.890 Other specified postprocedural states; X58.XXXA Exposure to other specified factors, initial encounter; Y93.89 Activity, other specified; Y92.89 Other specified places as the place of occurrence of the external cause; Y99.8 Other external cause status
CPT/HCPCS: 73630; 99283; L3260

== ENCOUNTER 2023-03-20 08:21 | Emergency (ER) | payer MEDICAID ==
[~2023-03-20] VITALS: Ht 157.5 cm; Wt 74.7 kg
[2023-03-20 08:29] VITALS: BP 109/72; PULSE 91; RESP 16; TEMP 98; O2SAT 99
[2023-03-20] MEDS ORDERED: NAPR-56 PO (09:38)
== END 2023-03-20 09:49 | disposition home or self-care (01) ==
LOC: ER 08:22
DX: S83.8X1A Sprain of other specified parts of right knee, initial encounter (principal); F12.90 Cannabis use, unspecified, uncomplicated; E78.00 Pure hypercholesterolemia, unspecified; K21.9 Gastro-esophageal reflux disease without esophagitis; F41.9 Anxiety disorder, unspecified; Z98.890 Other specified postprocedural states; Z72.89 Other problems related to lifestyle; Z88.8 Allergy status to other drugs, medicaments and biological substances; X50.1XXA Overexertion from prolonged static or awkward postures, initial encounter; Y93.89 Activity, other specified; Y92.89 Other specified places as the place of occurrence of the external cause; Y99.8 Other external cause status
CPT/HCPCS: 29505; 73564; 99283

== ENCOUNTER 2023-03-26 08:05 | Emergency (ER) | payer MEDICAID ==
[~2023-03-26] VITALS: Ht 157.5 cm; Wt 75.0 kg
[~2023-03-26 08:05] MED LIST changes: +NAPR-56 PO
[2023-03-26 08:09] VITALS: BP 137/89; PULSE 92; O2SAT 98
[2023-03-26] MEDS: HYDROcodone/acetaminophen 5mg/325mg tablet PO ONE (09:21)
[2023-03-26] MEDS: naproxen 500mg tablet PO ONE (09:21)
[2023-03-26 09:48] VITALS: RESP 16
[2023-03-26 10:10] VITALS: TEMP 97
== END 2023-03-26 10:12 | disposition home or self-care (01) ==
LOC: ER 08:06
DX: S83.91XA Sprain of unspecified site of right knee, initial encounter (principal); E78.00 Pure hypercholesterolemia, unspecified; K21.9 Gastro-esophageal reflux disease without esophagitis; F12.90 Cannabis use, unspecified, uncomplicated; Z88.8 Allergy status to other drugs, medicaments and biological substances; Z79.899 Other long term (current) drug therapy; Z79.1 Long term (current) use of non-steroidal anti-inflammatories (NSAID); Z98.890 Other specified postprocedural states; W01.0XXA Fall on same level from slipping, tripping and stumbling without subsequent striking against object, initial encounter; Y93.89 Activity, other specified; Y92.89 Other specified places as the place of occurrence of the external cause; Y99.8 Other external cause status
CPT/HCPCS: 29505; 73560; 99283

== ENCOUNTER 2023-09-29 14:22 | Outpatient (CLI) | payer MEDICAID ==
[~2023-09-29 14:22] MED LIST changes: -ARIP15TA19 PO; +ARIP15TA68 PO; -NAPR-56 PO
== END 2023-09-29 23:59 | disposition home or self-care (01) ==
LOC: MRI 14:22
PROVIDERS: ATTEND Physician Assistant Surgical
DX: M25.461 Effusion, right knee (principal); M25.561 Pain in right knee
CPT/HCPCS: 73721

== ENCOUNTER 2023-11-30 18:42 | Emergency (ER) | payer MEDICAID ==
[~2023-11-30] VITALS: Ht 157.5 cm; Wt 77.3 kg
[2023-11-30 19:26] VITALS: BP 136/75; PULSE 77; O2SAT 99
[2023-11-30] MEDS: amoxicillin 250mg capsule PO STA (20:26)
[2023-11-30 20:27] VITALS: RESP 14
[2023-11-30] MEDS: oxyCODONE IR 5mg (immed. release) tablet PO STA (20:27)
[2023-11-30 20:35] VITALS: TEMP 98.7
== END 2023-11-30 20:35 | disposition home or self-care (01) ==
LOC: ER 18:42
DX: K04.7 Periapical abscess without sinus (principal); E78.00 Pure hypercholesterolemia, unspecified; K21.9 Gastro-esophageal reflux disease without esophagitis; F32.A Depression, unspecified; G89.29 Other chronic pain; F12.90 Cannabis use, unspecified, uncomplicated; Z88.8 Allergy status to other drugs, medicaments and biological substances
CPT/HCPCS: 99283

== ENCOUNTER 2024-03-10 15:56 | Emergency (ER) | payer MEDICAID ==
[~2024-03-10] VITALS: Ht 157.5 cm; Wt 83.6 kg
[2024-03-10 15:59] VITALS: BP 168/86; PULSE 74; TEMP 98; O2SAT 98
[2024-03-10] MEDS ORDERED: MELO-100 PO (17:20)
[2024-03-10] MEDS ORDERED: HYDR-3965 PO (17:20)
[2024-03-10] MEDS: dexamethasone sod phosphate 10mg/ml inj PO STA (17:25)
[2024-03-10 17:26] VITALS: RESP 16
[2024-03-10] MEDS: ketorolac trometh 30MG/ML vial 30 MG/ML VIAL IM ONE (17:26)
== END 2024-03-10 17:29 | disposition home or self-care (01) ==
LOC: ER 15:57
DX: S40.011A Contusion of right shoulder, initial encounter (principal); E78.00 Pure hypercholesterolemia, unspecified; K21.9 Gastro-esophageal reflux disease without esophagitis; F32.A Depression, unspecified; F12.90 Cannabis use, unspecified, uncomplicated; F10.90 Alcohol use, unspecified, uncomplicated; Z88.8 Allergy status to other drugs, medicaments and biological substances; Z98.890 Other specified postprocedural states; W19.XXXA Unspecified fall, initial encounter; Y93.89 Activity, other specified; Y92.89 Other specified places as the place of occurrence of the external cause; Y99.8 Other external cause status; Y90.9 Presence of alcohol in blood, level not specified
CPT/HCPCS: 73030; 96372; 99284; J1100; J1885

== ENCOUNTER 2024-06-17 09:46 | Emergency (ER) | payer MEDICAID ==
[~2024-06-17] VITALS: Ht 157.5 cm; Wt 80.8 kg
[~2024-06-17 09:46] MED LIST changes: +MELO-100 PO
[2024-06-17] MEDS: HYDROcodone/acetaminophen 5mg/325mg tablet PO ONE (11:26)
--- NOTE | 2024-06-17 11:34 | RADIOLOGY REPORT ---
CLINICAL INDICATION: Bruising and pain TECHNIQUE: 3 radiographic views of the right hand were obtained. Comparison: DI FOOT, COMPLETE (3VW MIN) on DOS: 01/12/23 FINDINGS/IMPRESSION: There is no evidence of acute fracture or dislocation. The visualized joint space is well maintained. The alignment is anatomical. There is no radiopaque foreign body.
--- NOTE | 2024-06-17 12:27 | Physician Documentation ---
History of Present Illness ~ Chief Complaint: Finger pain Stated Complaint: R THUMB PAIN Time Seen by MD: 10:49 OK to notify your PCP?: Yes Primary Medical Doctor: Dr Silva Source: patient Mode of Arrival: POV Exam Limitations: no limitations HPI This is a 43-year-old female who comes in complaining of bruising and swelling to the right hand. The patient states that is she woke up with the bruising and swelling in his not remember injuring herself. She does not take blood thinners but she said she has a history of osteoporosis and has had atraumatic pathological fractures in the past. The pain and bruising or mostly at the base of the right thumb you unaffected range of motion of the right thumb. He is also complaining of pain of the right wrist with movement of the wrist. She denies distal numbness tingling weakness. Tetanus within 5 years: Yes Medication Reconciliation Allergies: Coded Allergies: promethazine HCl (Verified Allergy, Intermediate, "MUSCLE SPASMS", 06/17/24) paroxetine HCl (Verified Allergy, Mild, 06/17/24) Scheduled Aripiprazole (Aripiprazole), 1 TAB PO QAM, (Reported) Buprenorphine Hcl/Naloxone Hcl (Suboxone 8 Mg-2 Mg Sl Film), 8 MG PO TID, (Reported) Diclofenac Sodium (Diclofenac Sodium), 1 APPLIC TOP Q6H Furosemide (Lasix), 1 TAB PO DAILY Meloxicam* (Meloxicam*), 1 TAB PO DAILY Metoclopramide* (Metoclopramide*), 1 TAB PO TIDAC, (Reported) Pantoprazole Sodium (Pantoprazole Sodium), 1 TAB PO DAILY, (Reported) Potassium Chloride (Potassium Chloride), 10 MEQ PO DAILY Quetiapine Fumarate (Quetiapine Fumarate), 1 TAB PO HS, (Reported) Trazodone HCl (Trazodone HCl), 1 TAB PO HS, (Reported) Miscellaneous Medications [Marijuana], (Reported) Past Medical History Past Medical History: Seizures, High Cholesterol, GERD, Peptic Ulcer Disease, *RENAL/*, Chronic Pain, Depression Past Surgical History: abdominal surgery, , orthopedic surgeries, other Alcohol Use: Sober Drug Use: marijuana Lives with: Family Lives In: Home Occupation: employed Physical Exam Vital Signs: Temperature: 97.1, Source: Temporal, Heart Rate: 96, Respiratory Rate: 17, BP: 117/81, Pulse Oximetry: 100, Weight: 80.850 Oxygen Flow Rate: 0 Pulse Oximetry Reflects: adequate oxygenation General Appearance: alert, WD/WN, no apparent distress Hand To inspection of the right hand the patient has edema ecchymosis at the dorsum of the hand mostly overlying the base of the thumb extending into the webbing between the thumb and index finger. No obvious deformity or crepitus to palpation of the carpals, metacarpals or distal phalanges. The wrist has decreased range of motion all movements secondary to what appears to be referred pain from the hand. Bilateral radial pulses 2+ and equal. Cap refill less than 2 seconds and brisk in the digits of the right hand. Procedures Splinting Pre-Made Type: velcro Splint: thumb spica Pre-Proc Neuro Vasc Exam: normal Post-Proc Neuro Vasc Exam: normal Splint Placed By: luster applicator Tolerated Procedure Well?: yes, no complications Progress Results/Orders Reviewed/noted all lab results: Yes Results/Orders Orders - MIKE MON Hand, Complete (3vw Min) (06/17/24 11:12) Ortho Orders (06/17/24 12:08) Completed Orders - MIKE MON, Complete (3vw Min) (06/17/24 11:12) Hydrocodone/Apap 5/325mg Tab ([place] 5/32 (06/17/24 11:15) Medications Received in ER Medications (Trade) Dose Ordered Sig/Josephine Route PRN Reason Start Time Stop Time Status Last Admin Dose Admin ([place] 5/325mg tablet) 1 tab ONCE ONCE PO 06/17/24 11:15 06/17/24 11:16 DC 06/17/24 11:26 1 TAB Vital Signs 06/17/24 06/17/24 09:58 11:26 Temp 97.1 Pulse 96 Resp 18 17 B/P (MAP) 117/81 Pulse Ox 100 O2 Flow Rate 0 EKG/XRAY/CT/US/VASC/MRI Bone/Soft Tissue X-Ray (Ext.) : Interpreted By: self Additional Comment X-ray right hand three-view interpreted by me: No obvious acute fracture or malalignment. There was a chronic appearing deformity of the scaphoid bone. Soft tissues unremarkable. Medical Decision Making Findings X-rays did not show any acute fractures. There is a chronic appearing abnormality of the scaphoid however again no fracture. The patient was placed in a Velcro thumb spica splint with the instructions to ice and elevate the hand and take ibuprofen or Tylenol for pain. Follow up with the primary care physician for recheck in the next one or two days and return to the ER for any worsening or concerning symptoms. Additional Comment Right hand contusion. Right hand sprain strain. Pathological fracture of the right hand. Departure Disposition: HOME / SELF CARE / HOMELESS Impression: Primary Impression: Contusion of right hand Condition: Stable Discharge Instructions: Hand Contusion Additional Instructions: Wear the splint for support. Ice and elevate the hand frequently. Ibuprofen or Tylenol for pain. Follow up with the primary care physician for recheck in the next couple of days and return to the ER for any worsening or concerning symptoms. Referrals: NO PRIMARY CARE PROVIDER (PCP) Signature Scribe Signature: No scribe Attestation: The note accurately reflects work and decisions made by me.Mike CASTRO 06/17/24 12:26 MIKE MON June 17, 2024 12:26
[2024-06-17 12:32] VITALS: BP 115/76; PULSE 68; RESP 16; TEMP 97.1; O2SAT 99
== END 2024-06-17 12:33 | disposition home or self-care (01) ==
LOC: ER 09:47
DX: S60.221A Contusion of right hand, initial encounter (principal); E78.00 Pure hypercholesterolemia, unspecified; F12.90 Cannabis use, unspecified, uncomplicated; F32.A Depression, unspecified; K21.9 Gastro-esophageal reflux disease without esophagitis; Z88.8 Allergy status to other drugs, medicaments and biological substances; Z79.899 Other long term (current) drug therapy; X58.XXXA Exposure to other specified factors, initial encounter; Y93.89 Activity, other specified; Y92.89 Other specified places as the place of occurrence of the external cause; Y99.8 Other external cause status
CPT/HCPCS: 29125; 73130; 99283